=== PATIENT | male | born 1980 | race Caucasian/White ===

== ENCOUNTER 2017-08-07 16:02 | Emergency (ER) | payer OTHER ==
[~2017-08-07 16:02] MED LIST: AZIT-17; CIPR-344 PO; CLIN-75 PO; CLIN300C99 PO; EPIN0.3P3 IM; HYDR-4309 PO; IBU600 PO; IBUP-2704 PO; IBUP800T37 PO; NO ROUTINE MEDS; OXYC-865 PO; PER PO; PRED20TA6 PO; TOBR5DRO43 OU; TRAM-627 PO
[2017-08-07 16:05] VITALS: BP 107/83
--- NOTE | 2017-08-07 17:05 | ER Report ---
History and Physical Time Seen By MD: 16:35 Hx. 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 He can feel his fingers and move his fingers well. It was cut at the PIP joint little finger ulnar aspect. He also has a more superficial laceration on the hypothenar imminence ulnar side. No other complaints and no other problems. REVIEW OF SYSTEMS: Constitutional: No fever, no chills. Eyes: No discharge. ENT: No sore throat. Cardiovascular: No chest pain, no palpitations. Respiratory: No cough, no shortness of breath. Gastrointestinal: No abdominal pain, no vomiting. Genitourinary: No hematuria. Musculoskeletal: No back pain. Skin: No rashes. Neurological: No headache. Allergies: Coded Allergies: Penicillins (Verified Allergy, Severe, "AND ALL THINGS RELATED", 08/07/17) venom-wasp (Verified Allergy, Severe, anaphylaxis, 08/07/17) Home Meds Discontinued Scripts Oxycodone Hcl/Acetaminophen (PERCOCET 5-325 MG TABLET) 1 Each Tablet, 1 EACH PO Q6H for PAIN, #15 TAB 0 Refills Prov:MARZENA SANTOS MD 08/18/16 Hx Smoking: Yes Smoking Status: Current: Every Day Smoker Exposure to Second Hand Smoke?: Yes Hx Substance Use Disorder: No Hx Alcohol Use: No (RECOVERING ALCOHOLIC) Constitutional Vital Sign - Last 24 Hours 08/07/17 16:05 Temp 98.2 Pulse 62 Resp 14 B/P (MAP) 107/83 Pulse Ox 99 O2 Delivery Room Air Physical Exam General Appearance: The patient is alert, has no immediate need for airway protection and no signs of toxicity. Conversational oriented alert Eyes: Pupils equal and round no pallor or injection. ENT, Mouth: Mucous membranes are moist. Respiratory: There are no retractions, lungs are clear to auscultation. Cardiovascular: Regular rate and rhythm. [ ] Gastrointestinal: Abdomen is soft and non tender, no masses, bowel sounds normal. Neurological: Oriented alert. Good sensation to the tip of the right little finger. Skin: Warm and dry, no rashes. 1 cm laceration on the ulnar aspect of the PIP joint right little finger. 1 cm laceration on the ulnar aspect hyperthenar eminence right hand as well. Musculoskeletal: Neck is supple non tender. Extremities are nontender, nonswollen and have full range of motion. DIFFERENTIAL DIAGNOSIS: After history and physical exam differential diagnosis was considered for simple skin laceration. Tendon involvement. Or foreign body. This turned out to be just a simple skin laceration. Medical Decision Making ED Course/Re-evaluation ED Course And was evaluated and is neurovascular intact. The 2 lacerations were repaired. The one left finger was repaired with 4-0 Ethilon. The one on the hyper thenar eminence was repaired with Dermabond. Procedure Procedure: Laceration repair. Verbal consent was obtained from the patient. The wound size laceration was 1 cm and numbed with with 2 mL 1% lidocaine the wound was scrubbed, draped and explored to its base with a gloved finger. There were no deep structures involved. No tendon injury was identified. The wound was repaired with 4-0 Ethilon. The wound repair was simple with 4 stitches. The procedure was performed by myself. Patient tolerated well. Decision to Disposition Date: Aug 07, 2017 Decision to Disposition Time: 17:05 Depart Departure Latest Vital Signs Vital Signs Date Time Temp Pulse Resp B/P (MAP) Pulse Ox O2 Delivery O2 Flow Rate FiO2 08/07/17 16:05 98.2 62 14 107/83 99 Room Air Impression: Primary Impression: Laceration of finger of right hand Condition: Improved Disposition: HOME OR SELF-CARE Patient Instructions: Finger Laceration (ED) Additional Instructions: Sutures out in one week. Watch for infection. Tylenol for pain. Keep this clean and dry. Call if there are any questions or problems. JEREMIAH TERRELL MD Aug 07, 2017 17:05
== END 2017-08-07 17:39 | disposition home or self-care (01) ==
LOC: ER 16:13
DX: S61.216A Laceration without foreign body of right little finger without damage to nail, initial encounter (principal)
CPT/HCPCS: 99283